=== PATIENT | male | born 1975 | race Caucasian/White ===

== ENCOUNTER → 2019-11-25 | Outpatient (CLI) | payer OTHER ==
--- NOTE | 2019-11-28 10:02 | SLEEP ---
[facility] [address] [place] [address] SLEEP STUDY REPORT Name: ERNST CHOWDARYD Clay Room: [facility]#: [id number] Admission: 11/25/19 Attend Phys: Carla Benz Discharge: Date of : 73 Report #: [id number] THIS REPORT FOR: //name// CC: Jefferson Reed DO This study has been reviewed in its entirety by a board certified sleep specialist DATE OF SERVICE: 11/25/2019 ATTENDING PHYSICIAN: Jefferson Reed M.D. The patient is 44 years old who weighs 270 pounds with a BMI of 39.9. The patient's [place] score was 7. The patient underwent split night study performed at [facility]. During the night study, the patient spent 388 minutes in bed and slept for 294 minutes with a sleep efficiency of 75.8%. Sleep latency was 13.7 minutes with a REM latency of 167 minutes. Sleep architecture showed normal stage 1 sleep, increased stage 2 sleep, increased slow wave and normal REM sleep. During the initial diagnostic portion of the study, the patient slept for 123 minutes. During that time, the patient had 12 obstructive apneas, 1 central apnea, no mixed apneas and 65 hypopneas. The patient's AHI was 38 per hour. REM sleep was not seen. Supine AHI was 91 per hour. EKG monitoring revealed an average heart rate of 79 beats per minute. No sustained arrhythmias observed. PLMS were seen at an index of 16 per hour and 9 per hour caused EEG arousals. Nocturnal oximetry study revealed an average oxygen saturation of 94% with the lowest of 82%. 7 minutes were spent in oxygen saturation of less than 89%. The patient met the criteria for CPAP initiation. It was started at 8 cm water and titrated up to 12 cm water. At the final pressure, the patient slept for 53 minutes including 27 minutes of supine REM sleep. The patient's AHI was reduced to 1.1 per hour and oxygen saturation remained above 91%. IMPRESSION: 1. Severe sleep apnea-hypopnea syndrome. Total AHI 38 per hour with worsening AHI to 91 per hour during REM sleep. 2. Nocturnal hypoxia secondary to obstructive sleep apnea, but resolved with CPAP. 3. Mild [place] [address] SLEEP STUDY REPORT Name: LEXUS CHOWDARY Room: [facility]#: [id number] Admission: 11/25/19 Attend Phys: Carla Benz Discharge: Date of : 73 Report #: [id number] RECOMMENDATIONS: 1. CPAP at 12 cm water completely eliminated the patient's sleep apnea and should be used on a nightly basis. 2. Follow up in 4-6 weeks to assess compliance with CPAP and to document clinical improvement. 3. Weight loss is advised. 4. Avoid [employer] depressants. 5. Cautioned regarding driving until symptoms of sleep apnea resolve with the use of CPAP. <ELECTRONICALLY SIGNED> By: Carlos Sahu MD 11/28/19 1002 [id number] Flynn Sahu MD /nt
== END ==
LOC: M.SLEEPLAB 21:00
DX: G47.33 Obstructive sleep apnea (adult) (pediatric) (principal); E66.01 Morbid (severe) obesity due to excess calories; Z99.89 Dependence on other enabling machines and devices; Z68.41 Body mass index [BMI] 40.0-44.9, adult; R09.02 Hypoxemia